=== PATIENT | male | born 1945 | race Caucasian/White ===

== ENCOUNTER → 2016-12-15 | Outpatient (CLI) | payer MEDICARE, BC ==
[~2016-12-15] MED LIST: KEFLEX500 MG PO; LIPITOR; LOTREL PO; ZOLOFT
--- NOTE | ~2016-12-15 | US37 ---
[facility] A Service of [facility] RADIOLOGY TEXT RESULTS PATIENT: DONNA LEGGETT LOCATION: CNIV : 43 UNIT #: [id number] AGE: [address]: MILTON ARIZA SEX: M ORDER DR: [id number] [place], [place] [address] [id number] MR#: [id number] Acc #: [id number] NAME: DONNA LEGGETT : 1945 SEX: M STUDY DATE/TIME: 12/15/2016 12:14 UNIT: CNIV ROOM: STUDY DESCRIPTION: US Carotid W/Doppler Bilateral Attending Physician: Milton Ariza M.D. Referring Physician: Milton Ariza M.D. Ordering Physician: Monik Bauman Primary Care Physician: Joann Menendez M.D. MEDICAL IMAGING REPORT This report is preliminary unless electronic signature is present EXAM Carotid Doppler DATE OF STUDY 12/15/2016 PROCEDURE Lainez-scale imaging, color-Doppler flow imaging Doppler waveform analysis. CLINICAL HISTORY Hypertension, hypercholesterolemia and retinal embolism diagnosed 3 weeks ago. PROCEDURE Lainez-scale imaging, color-Doppler flow imaging and Doppler waveform analysis. FINDINGS There is lainez-scale evidence of plaque in both carotid systems. There is antegrade flow in both common and internal and external carotid and vertebral arteries. Right internal carotid peak systolic velocity is 141 cm/sec with a brisk systolic upstroke and moderate spectral broadening. Left internal carotid peak systolic velocity is 93 cm/sec with a brisk systolic upstroke. IMPRESSION Plaque in both carotid systems with 50% to 69% right ICA stenosis and less than 50% left ICA stenosis by NASCET criteria. Antegrade flow in both external carotid and vertebral arteries as well. Dictated by... Manuel Persaud M.D. [facility] A Service [facility] RADIOLOGY TEXT RESULTS PATIENT: DONNA LEGGETT LOCATION: CNIV : 44 UNIT #: [id number] AGE: [address]: MILTON ARIZA SEX: M ORDER DR: THIS IS AN ELECTRONICALLY VERIFIED REPORT Manuel Persaud M.D. at 12/16/2016 4:57 PM TEV/to TD: 12/15/2016 14:31 JOB #: [id number] MEDICAL IMAGING REPORT Page 1 of 1 COPY
== END | disposition home or self-care (01) ==
LOC: CNIV 11:44
DX: H34.02 Transient retinal artery occlusion, left eye (principal); H34.212 Partial retinal artery occlusion, left eye; I65.23 Occlusion and stenosis of bilateral carotid arteries
CPT/HCPCS: 93306; 93880